=== PATIENT | female | born 1985 | race Hispanic/Latino ===

== ENCOUNTER 2018-10-19 01:00 | Emergency (ER) | payer OTHER ==
[2018-10-19] MEDS ORDERED: IBUPROFEN 200 MG TAB ONE (01:19)
== END 2018-10-19 02:45 | disposition home or self-care (01) ==
LOC: EDH 01:00
DX: S83.411A Sprain of medial collateral ligament of right knee, initial encounter (principal); Z98.51 Tubal ligation status; W10.8XXA Fall (on) (from) other stairs and steps, initial encounter; Y93.89 Activity, other specified; Y92.89 Other specified places as the place of occurrence of the external cause; Y99.8 Other external cause status
CPT/HCPCS: 29505; 73562